=== PATIENT | female | born 2000 | race Caucasian/White ===

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

== ENCOUNTER 2018-08-11 20:40 | Emergency (ER) | payer BC ==
[2018-08-11 21:00] VITALS: BP 109/81; PULSE 95; RESP 18; TEMP 98.5
--- NOTE | 2018-08-11 21:11 | ED ---
Lower Extremity Injury HPI - General Chief Complaint: Extremity Injury, Lower Stated Complaint: Fall R knee injury Time Seen by Provider: 08/11/18 21:09 Source: patient Mode of arrival: wheelchair Limitations: physical limitation - History of Present Illness Initial Comments: Angeline is a 17-year-old female with chronic pain in her right knee for which sh e's been evaluated by her primary care physician and is currently enrolled in physical therapy. Patient reports that today she was walking down the stairs when she felt her right knee give out, she held the handrail and did not fall to the ground. She reports that since that time she's had worsening pain in her knee. Patient reports that a few months ago she had an incident in which she was lifting something felt a pop in her knee and since that time she's had worsening chronic knee pain. She's never been evaluated by orthopedics. She denies any other injury or pain today. - Related Data Home Medications Medication Instructions Recorded Confirmed PARoxetine HCL [Paxil Cr] 37.5 mg PO DAILY 08/11/18 08/11/18 traZODone HCL [Desyrel] 100 mg PO HS 08/11/18 08/11/18 Allergies Allergy/AdvReac Type Severity Reaction Status Date / Time No Known Allergies Allergy Verified 08/11/18 21:13 Review of Systems ROS Statement: Those systems with pertinent positive or pertinent negative responses have been documented in the HPI. ROS Other: All systems not noted in ROS Statement are negative. Past Medical History Past Medical History: No Reported History Additional Past Medical History / Comment(s): history of mono 03/2017, vitamin d deficiency, History of Any Multi-Drug Resistant Organisms: None Reported Past Surgical History: No Surgical Hx Reported Past Psychological History: Anxiety, Depression, Panic Disorder Smoking Status: Never smoker Past Alcohol Use History: Occasional Past Drug Use History: None Reported - Past Family History Father Family Medical History: No Reported History General Exam - General Exam Comments Initial Comments: Physical Exam GENERAL: Patient is well-developed and well-nourished. Patient is nontoxic and well-hydrated and is in no distress. HENT: Normocephalic, Atraumatic. EYES: PERRL, EOMI PULMONARY: Unlabored respirations. CARDIOVASCULAR: RRR WArm and well-perfused lower extremities ABDOMEN: Nondistended SKIN: Skin is clear with no lesions or rashes and otherwise unremarkable. : Deferred NEUROLOGIC: Patient is alert and oriented x3. Moving all extremities spontaneously MUSCULOSKELETAL: Decreased range of motion of right knee secondary to pain Negative Lockman or Magdalena's test negative anterior and posterior drawer signs No swelling or effusion of the knee PSYCHIATRIC: Normal psychiatric evaluation. Limitations: physical limitation Course Vital Signs 08/11/18 20:57 Temperature 98.5 F Pulse Rate 95 Respiratory 18 Rate Blood Pressure 109/81 O2 Sat by Pulse 95 Oximetry Medical Decision Making - Medical Decision Making The patient was seen and evaluated history was obtained from the patient patient has chronic pain in her right knee today she felt that her knee gave out while she was walking she did not follow ground she was able to hold herself up she has been ambulatory since that time but with pain. X-rays reveal no acute findings, this was discussed with the patient, I advised her she needs to follow up with orthopedics for further evaluation and possible MRI and that if there is no findings from orthopedic she may want to follow up with rheumatology Knee immobilizer was applied and patient was discharged home in stable condition Disposition Clinical Impression: Chronic knee pain Disposition: HOME SELF-CARE Condition: Stable Instructions (If sedation given, give patient instructions): Knee Pain (ED) Additional Instructions: X-rays show no signs of bony injury today however this cannot absolutely rule out any soft tissue injuries including meniscus and tendon injuries. Wear the knee immobilizer, follow-up with orthopedics for further evaluation. Is patient prescribed a controlled substance at d/c from ED?: No Referrals: Edgard Espinosa DO [Primary Care Provider] - 1-2 days [facility] [Provider Group] - 1-2 days
--- NOTE | 2018-08-11 21:42 | XR ---
EXAMINATION TYPE: XR knee 4V RT DATE OF EXAM: 08/11/2018 COMPARISON: NONE HISTORY: Knee pain TECHNIQUE: 4 views FINDINGS: I see no fracture nor dislocation. Joint spaces are normal. There is no sign of joint effus ion. IMPRESSION: Negative right knee exam.
== END 2018-08-11 22:29 | disposition home or self-care (01) ==
LOC: EC 20:40
DX: M25.561 Pain in right knee (principal); G89.29 Other chronic pain; F41.0 Panic disorder [episodic paroxysmal anxiety]; F32.9 Major depressive disorder, single episode, unspecified; Z79.899 Other long term (current) drug therapy
CPT/HCPCS: 99283

== ENCOUNTER → 2018-08-17 | Outpatient (CLI) | payer BC ==
--- NOTE | 2018-08-17 22:34 | MR ---
EXAMINATION TYPE: MR knee RT wo con DATE OF EXAM: 08/17/2018 COMPARISON: Right knee x-ray August 11, 2018. HISTORY: Rt knee pain x 3 mos with swallowing, history of injury August 11, 2018. TECHNIQUE: Multiplanar, multisequence images of the knee is performed without IV contrast. FINDINGS: MEDIAL MENISCUS: Anterior horn is intact without tear. Globular and oblique increased signal posterio r horn of medial meniscus is present does not definitively extend to articular surface. LATERAL MENISCUS: Anterior and posterior horns are intact without tear. CRUCIATE LIGAMENTS: The posterior cruciate ligament is intact and unremarkable.. Anterior cruciate li gament is intact with increased signal distal fibers noted. COLLATERAL LIGAMENTS: The medial collateral ligament and lateral collateral ligament complex are inta ct and unremarkable. EXTENSOR MECHANISM: Visualized quadriceps and patellar tendons are intact. EFFUSION: No significant suprapatellar joint effusion. POPLITEAL CYST: No popliteal/tolentino cyst. TRICOMPARTMENT SPACES: Tricompartment joint spaces are maintained. No significant spurring is seen. CARTILAGE: Tricompartment articular cartilage is preserved. BONE MARROW SIGNAL: No focal abnormal marrow signal is appreciated. OTHER: No additional significant abnormality is appreciated. IMPRESSION: 1. No complete ACL tear. Myxoid degeneration is present. 2. At least intrasubstance tear posterior horn of medial meniscus, no full-thickness meniscal tear de finitively identified.
== END | disposition home or self-care (01) ==
LOC: RADMRIMAIN 20:51
PROVIDERS: ATTEND Orthopaedic Surgery
DX: S83.241A Other tear of medial meniscus, current injury, right knee, initial encounter (principal)

== ENCOUNTER 2018-10-16 06:37 | Day surgery (SDC) | payer BC ==
[2018-10-14 11:18] VITALS: BMI 17.2
--- NOTE | 2018-10-15 19:58 | HP ---
HISTORY AND PHYSICAL CHIEF COMPLAINT: Right knee pain. 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 She notes her knee gave way and she fell down some stairs at home. She has had persistent anterior and lateral pain ever since. She notes intermittent giving way. She has tried bracing, medications and an injection, with only partial temporary relief. PAST MEDICAL HISTORY: Significant for depression. PAST SURGICAL HISTORY: Negative. CURRENT MEDICATIONS: 1. Paroxetine. 2. Trazodone. ALLERGIES: SHE DENIES DRUG ALLERGIES. FAMILY HISTORY: Significant for cancer. SOCIAL HISTORY: Negative for current tobacco or alcohol use. REVIEW OF SYSTEMS: Sixteen-point review of systems otherwise reviewed and is noncontributory. PHYSICAL EXAMINATION: On examination, the patient is approximately 5 feet 8 inches, 115 pounds of mesomorphic habitus. HEENT exam is nonfocal. NECK: Supple. She has painless passive motion of her right hip. [id number] is negative. Active motion of right knee -6 to 150 degrees of flexion. She is tender about the medial joint line and medial patellar facet. Collaterals are stable, Ashlie is negative, Magdalena's equivocal. She does have some pain with patellofemoral compression. Her distal neurovascular appears intact in the right lower extremities. IMAGING: MRI report right knee 08/17/2018 shows increased signal along the posteromedial meniscus. There is also some increased signal on the anterior cruciate ligament. IMPRESSION: 1. Internal derangement, right knee, with possible patellar chondral injury. 2. Possible medial meniscal tear, right knee. RECOMMENDATIONS: I talked to the patient at length regarding her condition along with treatment options. At this point she remains symptomatic despite adequate conservative measures. After a thorough discussion, she opted to proceed with surgery. We will plan to proceed with arthroscopic evaluation with possible partial medial meniscectomy. Risks and benefits were discussed at length in layman's terms. We will likely perform that as an outpatient procedure. MMODL / IJN: [id number] /
[~2018-10-16 06:37] MED LIST: DEXAMETHASONE SOD PHOSPHATE 10 MG/ML 1 ML VIAL IV ONE; LACTATED RINGERS 1,000 ML IV SCH; ONDANSETRON 4 MG/2 ML VIAL IVP ONE; ONDANSETRON 4 MG/2 ML VIAL IVP PRN
[2018-10-16] MEDS ORDERED: LIDOCAINE 1% 20 ML VIAL (10MG/ML) FOR IV START INTRADERMA ONE (07:37)
[2018-10-16] MEDS ORDERED: MIDAZOLAM (PF) 2 MG/2 ML VIAL IVP ONE (07:49)
[2018-10-16] MEDS ORDERED: MIDAZOLAM 2 MG/2 ML VIAL ONE (07:54)
[2018-10-16] MEDS ORDERED: KETOROLAC 30 MG/ML 1 ML VIAL ONE (07:54)
[2018-10-16] MEDS ORDERED: LIDOCAINE 1% INJ 10MG/ML (20 ML MDV) ONE (07:54)
[2018-10-16] MEDS ORDERED: fentaNYL (PF) 50 MCG/ML 2 ML AMP ONE (07:54)
[2018-10-16] MEDS ORDERED: PROPOFOL 10 MG/ML 20 ML VIAL IV ONE (07:54)
[2018-10-16] MEDS ORDERED: EPINEPHrine (PF) 1 ML in SODIUM CHLORIDE 0.9% IRRIGATIO 3,000 ML IRRIGATION ONE ×4 (08:18)
--- NOTE | 2018-10-16 08:41 | P.OP ---
Date of Procedure: 10/16/18 Preoperative Diagnosis: Internal derangement right knee Postoperative Diagnosis: Grade 2 chondral injury medial femoral condyle/lateral patella facet, reactive synovitis of the medial, lateral, and patellofemoral compartments. Procedure(s) Performed: Right knee arthroscopic medial femoral chondrectomy, patellar chondroplasty, synovectomy of the medial, lateral, and patellofemoral compartments. Anesthesia: GETA Surgeon: Lex Nelson Estimated Blood Loss (ml): 10 Pathology: none sent Condition: stable Disposition: PACU Indications for Procedure: The patient's a 18-year-old female who presents with progressive right knee pain and mechanical symptoms after previous injury. She did try conservative measures without much relief. A discussion of the risks and benefits of operative intervention versus continued conservative measures was made with patient. She opted to proceed with surgery. Operative risks to include infection, neurovascular injury, development of blood clots, possible incomplete resolution of symptoms, possible worsening symptoms and need for subsequent procedures was discussed. Informed consent was obtained. Operative Findings: As below Description of Procedure: The patient was brought to the operating room, and after induction of general anesthesia examined the right knee. Collaterals were stable, Ashlie was negative, and posterior drawer was negative. The right lower extremity was prepped and draped in a normal fashion. A superior lateral portal was made through a 3 mm skin incision superior and lateral to the patella. This was used for outflow. A lateral portal was made through a 5 mm vertical skin incision lateral to the patella tendon above the joint line. Diagnostic arthroscopy was performed. On inspection of the medial compartment, no significant meniscal tear was noted. A grade 2 chondral injury involving the distal lateral portion of the medial femoral condyle was noted. There was a loose chondral flap measuring 3 x 3 mm. This was debrided back to stable base with a motorized shaver. Reactive synovitis involving the anterior medial compartment was debrided with a motorized shaver. On inspection of the notch, the anterior cruciate ligament appeared to be intact. On inspection of the lateral compartment no significant meniscal pathology was noted. Reactive synovitis involving the lateral compartment was debrided with a motorized shaver. On inspection of the patellofemoral articulation, a grade 2 chondral injury involving the lateral patellar facet was noted. There is a small loose chondral flap debrided back to stable base to motorized shaver. Reactive synovitis involving the patellofemoral articulation was removed with a motorized shaver. The gutters were clear debris. The knee was then thoroughly irrigated. The portals were closed with Steri-Strips. A sterile dressing was applied in addition to a compression stocking. The patient was awoken from general anesthesia and transferred to recovery room in good condition. Blood loss was estimated at 10 mL. No complications were incurred.
[2018-10-16] MEDS: MEPERIDINE 50 MG/ML SYRINGE IVP ONE ×2 (08:45→09:10)
[2018-10-16 09:00] VITALS: RESP 16; TEMP 97
[2018-10-16] MEDS: HYDROmorphone 0.5 MG/0.5 ML SYRINGE IVP PRN ×2 (09:00→09:05)
[2018-10-16] MEDS ORDERED: Acetaminophen-Codeine 300-30mg TAB PO ONE (09:30)
[2018-10-16 09:51] VITALS: BP 106/73; PULSE 80
[2018-10-16] MEDS ORDERED: LACTATED RINGERS 1,000 ML IV ONE (09:51)
== END 2018-10-16 10:44 | disposition home or self-care (01) ==
LOC: OR 06:37
PROVIDERS: ATTEND Orthopaedic Surgery
DX: S83.31XA Tear of articular cartilage of right knee, current, initial encounter (principal); W10.9XXA Fall (on) (from) unspecified stairs and steps, initial encounter; Y92.009 Unspecified place in unspecified non-institutional (private) residence as the place of occurrence of the external cause; M65.861 Other synovitis and tenosynovitis, right lower leg; F32.9 Major depressive disorder, single episode, unspecified; Z79.899 Other long term (current) drug therapy
CPT/HCPCS: 81025; 29876; J2250 ×2; J1100; J2175; J2405; J0690; J0171; J2001; J3010; J1885; J2704; J1170

== ENCOUNTER 2020-12-24 18:08 | Emergency (ER) | payer BC ==
[2020-12-24 18:14] VITALS: RESP 18; TEMP 97.9
[2020-12-24] MEDS ORDERED: SODIUM CHLORIDE 0.9% 1,000 ML IV STA (20:28)
--- NOTE | 2020-12-24 20:35 | ED ---
Dizziness HPI - General Chief Complaint: Dizziness Stated Complaint: dizziness Time Seen by Provider: 12/24/20 20:13 Source: patient Mode of arrival: ambulatory Limitations: no limitations - History of Present Illness Initial Comments: 20-year-old female presents to the emergency department with chief complaint of lightheadedness and dizziness. Patient reports symptoms have been ongoing for the past 2-3 days without an exact trigger for the symptoms. Patient states she's also been feeling more confused than usual. States she had to call off work yesterday due to the severity of the symptoms. Patient states there is a possibility for . She does not take any medications. No previous significant past medical history. She denies any headaches, blurry vision, one- sided weakness or paresthesias. Denies any chest pain or shortness of breath. Denies any traumatic injuries to the head. - Related Data Home Medications Medication Instructions Recorded Confirmed PARoxetine HCL [Paxil Cr] 37.5 mg PO DAILY 08/11/18 10/16/18 traZODone HCL [Desyrel] 100 mg PO HS 08/11/18 10/14/18 Previous Rx's Medication Instructions Recorded Acetaminophen with Codeine 1 tab PO Q4H PRN 7 Days #21 tab 10/16/18 [Tylenol w/codeine #3] Allergies Allergy/AdvReac Type Severity Reaction Status Date / Time azithromycin Allergy Unknown Verified 12/24/20 18:15 Review of Systems ROS Statement: Those systems with pertinent positive or pertinent negative responses have been documented in the HPI. ROS Other: All systems not noted in ROS Statement are negative. Past Medical History Past Medical History: No Reported History Additional Past Medical History / Comment(s): history of mono 03/2017, vitamin d deficiency, pain right knee, has IUD. History of Any Multi-Drug Resistant Organisms: None Reported Past Surgical History: Orthopedic Surgery Additional Past Surgical History / Comment(s): knee othro Additional Past Anesthesia/Blood Transfusion Reaction / Comment(s): NO ANESTHESIA HX Past Psychological History: Anxiety, Depression, Panic Disorder Smoking Status: Never smoker Past Alcohol Use History: Occasional Past Drug Use History: None Reported - Past Family History Father Family Medical History: No Reported History General Exam Limitations: no limitations General appearance: alert, in no apparent distress Head exam: Present: atraumatic, normocephalic, normal inspection Eye exam: Present: normal appearance, PERRL, EOMI Pupils: Present: normal accommodation ENT exam: Present: normal exam, normal oropharynx, mucous membranes moist, TM's normal bilaterally, normal external ear exam Neck exam: Present: normal inspection, full ROM. Absent: tenderness, lymphadenopathy Respiratory exam: Present: normal lung sounds bilaterally. Absent: respiratory distress, wheezes, rales, rhonchi, stridor, chest wall tenderness, accessory muscle use Cardiovascular Exam: Present: regular rate, normal rhythm, normal heart sounds. Absent: systolic murmur, diastolic murmur Extremities exam: Present: normal inspection, full ROM, normal capillary refill. Absent: tenderness Back exam: Present: normal inspection, full ROM. Absent: tenderness, CVA tenderness (R), CVA tenderness (L) Neurological exam: Present: alert, oriented X3, CN II-XII intact, normal gait Psychiatric exam: Present: normal affect, normal mood Skin exam: Present: warm, dry, intact, normal color Course Vital Signs 12/24/20 18:12 Temperature 97.9 F Pulse Rate 84 Respiratory 18 Rate Blood Pressure 118/83 O2 Sat by Pulse 97 Oximetry Medical Decision Making - Medical Decision Making 20-year-old female presents to the emergency department with chief complaint of lightheadedness and dizziness. On physical examination, patient has a positive Escobar-Hallpike which is increasing her dizziness. Laboratory work is unremarkable. She does have mild hematuria but she is currently on menstrual period. CT of the brain is unremarkable. I do suspect vertigo to be the cause of her symptoms. No tinnitus. Patient will be given meclizine when necessary reevaluation, she reports a prominent symptoms. I advised her to perform the Jhonatan maneuver. I advised her to follow with the primary care physician. Return parameters were discussed patient is a sitting agreeable. Case discussed with physician - Lab Data Result diagrams: 12/24/20 20:44 12/24/20 20:44 Lab Results 12/24/20 12/24/20 12/24/20 Range/Units 20:44 20:44 20:44 WBC 7.6 (3.8-10.6) k/uL RBC 5.10 (3.80-5.40) m/uL Hgb 15.6 (11.4-16.0) gm/dL Hct 44.8 (34.0-46.0) % MCV 88.0 (80.0-100.0) fL MCH 30.6 (25.0-35.0) pg MCHC 34.8 (31.0-37.0) g/dL RDW 11.8 (11.5-15.5) % Plt Count 333 (150-450) k/uL MPV 7.9 Neutrophils % 55 % Lymphocytes % 35 % Monocytes % 5 % Eosinophils % 3 % Basophils % 1 % Neutrophils # 4.2 (1.3-7.7) k/uL Lymphocytes # 2.6 (1.0-4.8) k/uL Monocytes # 0.4 (0-1.0) k/uL Eosinophils # 0.2 (0-0.7) k/uL Basophils # 0.1 (0-0.2) k/uL Sodium (137-145) mmol/L Potassium (3.5-5.1) mmol/L Chloride (98-107) mmol/L Carbon Dioxide (22-30) mmol/L Anion Gap mmol/L BUN (7-17) mg/dL Creatinine (0.52-1.04) mg/dL Est GFR (CKD-EPI)AfAm (>60 ml/min/1.73 sqM) Est GFR (CKD-EPI)NonAf (>60 ml/min/1.73 sqM) Glucose (74-99) mg/dL Calcium (8.4-10.2) mg/dL Total Bilirubin (0.2-1.3) mg/dL AST (14-36) U/L ALT (4-34) U/L Alkaline Phosphatase (38-126) U/L Troponin I (0.000-0.034) ng/mL Total Protein (6.3-8.2) g/dL Albumin (3.5-5.0) g/dL Urine Color Yellow Urine Appearance Cloudy H (Clear) Urine pH 7.0 (5.0-8.0) Ur Specific [place] 1.019 (1.001-1.035) Urine Protein Negative (Negative) Urine Glucose (UA) Negative (Negative) Urine Ketones Negative (Negative) Urine Blood Large H (Negative) Urine Nitrite Negative (Negative) Urine Bilirubin Negative (Negative) Urine Urobilinogen <2.0 (<2.0) mg/dL Ur Leukocyte Esterase Small H (Negative) Urine RBC 1 (0-5) /hpf Urine WBC 5 (0-5) /hpf Ur Squamous Epith Cells 4 (0-4) /hpf Urine Bacteria Rare H (None) /hpf Urine Mucus Rare H (None) /hpf Urine HCG, Qual Not Detected (Not Detectd) 12/24/20 12/24/20 Range/Units 20:44 20:44 WBC (3.8-10.6) k/uL RBC (3.80-5.40) m/uL Hgb (11.4-16.0) gm/dL Hct (34.0-46.0) % MCV (80.0-100.0) fL MCH (25.0-35.0) pg MCHC (31.0-37.0) g/dL RDW (11.5-15.5) % Plt Count (150-450) k/uL MPV Neutrophils % % Lymphocytes % % Monocytes % % Eosinophils % % Basophils % % Neutrophils # (1.3-7.7) k/uL Lymphocytes # (1.0-4.8) k/uL Monocytes # (0-1.0) k/uL Eosinophils # (0-0.7) k/uL Basophils # (0-0.2) k/uL Sodium 137 (137-145) mmol/L Potassium 4.0 (3.5-5.1) mmol/L Chloride 103 (98-107) mmol/L Carbon Dioxide 24 (22-30) mmol/L Anion Gap 10 mmol/L BUN 17 (7-17) mg/dL Creatinine 0.89 (0.52-1.04) mg/dL Est GFR (CKD-EPI)AfAm >90 (>60 ml/min/1.73 sqM) Est GFR (CKD-EPI)NonAf >90 (>60 ml/min/1.73 sqM) Glucose 93 (74-99) mg/dL Calcium 9.4 (8.4-10.2) mg/dL Total Bilirubin 0.4 (0.2-1.3) mg/dL AST 24 (14-36) U/L ALT 13 (4-34) U/L Alkaline Phosphatase 76 (38-126) U/L Troponin I <0.012 (0.000-0.034) ng/mL Total Protein 7.5 (6.3-8.2) g/dL Albumin 4.4 (3.5-5.0) g/dL Urine Color Urine Appearance (Clear) Urine pH (5.0-8.0) Ur Specific [place] (1.001-1.035) Urine Protein (Negative) Urine Glucose (UA) (Negative) Urine Ketones (Negative) Urine Blood (Negative) Urine Nitrite (Negative) Urine Bilirubin (Negative) Urine Urobilinogen (<2.0) mg/dL Ur Leukocyte Esterase (Negative) Urine RBC (0-5) /hpf Urine WBC (0-5) /hpf Ur Squamous Epith Cells (0-4) /hpf Urine Bacteria (None) /hpf Urine Mucus (None) /hpf Urine HCG, Qual (Not Detectd) Disposition Clinical Impression: Dizziness Disposition: HOME SELF-CARE Condition: Stable Instructions (If sedation given, give patient instructions): Benign Paroxysmal Positional Vertigo (ED), Dizziness (ED) Additional Instructions: Performed the Jhonatan maneuver. Take medication as directed. Return to emergency department if symptoms worsen. Is patient prescribed a controlled substance at d/c from ED?: No Referrals: Edgard Espinosa DO [Primary Care Provider] - 1-2 days Time of Disposition: 22:38
[2020-12-24 21:17] LABS: Basophils # (A) 0.1 k/uL (0-0.2); Basophils % (A) 1 %; Eosinophils # (A) 0.2 k/uL (0-0.7); Eosinophils % (A) 3 %; HCT 44.8 % (34.0-46.0); HGB 15.6 gm/dL (11.4-16.0); Lymphocytes # (A) 2.6 k/uL (1.0-4.8); Lymphocytes % (A) 35 %; MCH 30.6 pg (25.0-35.0); MCHC 34.8 g/dL (31.0-37.0); Mean Platelet Volume 7.9; Monocytes # (A) 0.4 k/uL (0-1.0); Monocytes % (A) 5 %; Neutrophils # (A) 4.2 k/uL (1.3-7.7); Neutrophils % (A) 55 %; Platelet Count 333 k/uL (150-450); RDW 11.8 % (11.5-15.5); WBC 7.6 k/uL (3.8-10.6)
[2020-12-24 21:33] LABS: ALT 13 U/L (4-34); AST 24 U/L (14-36); African American GFR (CKD) >90 (>60 ml/min/1.73 sqM); Albumin 4.4 g/dL (3.5-5.0); Alkaline Phosphatase 76 U/L (38-126); Anion Gap 10 mmol/L; Blood Urea Nitrogen 17 mg/dL (7-17); Calcium 9.4 mg/dL (8.4-10.2); Carbon Dioxide 24 mmol/L (22-30); Chloride 103 mmol/L (98-107); Glucose 93 mg/dL (74-99); Non-African American GFR(CKD) >90 (>60 ml/min/1.73 sqM); Sodium 137 mmol/L (137-145); Total Bilirubin 0.4 mg/dL (0.2-1.3); Total Protein 7.5 g/dL (6.3-8.2)
[2020-12-24 22:10] LABS: Appearance,Urine Cloudy (Clear); Bacteria,Urine Rare /hpf; Bilirubin,Urine Negative (Negative); Blood,Urine Large (Negative); Color,Urine Yellow; Glucose,Urine (UA) Negative (Negative); Ketones,Urine Negative (Negative); Leukocyte Esterase,Urine Small (Negative); Mucus,Urine Rare /hpf; Nitrite,Urine Negative (Negative); Protein,Urine Negative (Negative); RBC,Urine 1 /hpf (0-5); Specific Gravity,Urine 1.019 (1.001-1.035); Squamous Epithelial Cell,Urine 4 /hpf (0-4); Urobilinogen,Urine <2.0 mg/dL (<2.0); WBC,Urine 5 /hpf (0-5)
--- NOTE | 2020-12-24 22:18 | CT ---
EXAMINATION TYPE: CT brain wo con DATE OF EXAM: 12/24/2020 COMPARISON: None HISTORY: Dizziness x [address] DLP: 1092.4 mGycm Automated exposure control for dose reduction was used. Ventricles and sulci appear normal. There is no mass effect nor midline shift. There is no sign of in tracranial hemorrhage. Calvarium is intact. IMPRESSION: Negative unenhanced head CT scan.
[2020-12-24] MEDS ORDERED: MECLIZINE 12.5 MG TAB PO STA ×2 (22:38→22:52)
[2020-12-24 22:56] VITALS: BP 119/80; PULSE 87
== END 2020-12-24 22:55 | disposition home or self-care (01) ==
LOC: EC 18:08
DX: R42 Dizziness and giddiness (principal); R41.0 Disorientation, unspecified; F32.9 Major depressive disorder, single episode, unspecified; F41.9 Anxiety disorder, unspecified
CPT/HCPCS: 36415; 70450; 80053; 81001; 81025; 84484; 85025; 93005; 96360; 99284